=== PATIENT | female | born 1985 | race Two or more races ===

== ENCOUNTER 2017-07-23 20:53 | Emergency (ER) | payer SELFPAY ==
[~2017-07-23] VITALS: Ht 154.9 cm; Wt 81.6 kg
--- NOTE | 2017-07-23 21:05 | Emergency Room Report ---
History of Present Illness General Chief Complaint: To Be Triaged Source: Patient Present Illness HPI Is a 32-year-old female with no past medical history. Presents with chief complaint of epigastric pain and felt nauseous but no vomiting. No radiation. Pain is crampy in nature. Also felt dizzy. No diarrhea. No fever or chills. No urinary complaint. No had this problem before. Allergies: Coded Allergies: No Known Allergies (Unverified , 07/23/17) Patient History Past Medical History: none, see triage record, old chart reviewed Past Surgical History: other Pertinent Family History: none Social History: Denies: smoking Now: No Immunizations: other Reviewed Nursing Documentation: PMH: Agreed, PSxH: Agreed Review of Systems Eye: Denies: eye pain, blurred vision ENT: Denies: ear pain, nose congestion, throat swelling Respiratory: Denies: cough, shortness of breath Cardiovascular: Denies: chest pain, palpitations Gastrointestinal: Reports: abdominal pain, nausea, Denies: diarrhea, vomiting Musculoskeletal: Denies: back pain, joint pain Skin: Denies: rash Neurological: Denies: headache, numbness Endocrine: Denies: increased thirst, increased urine Hematologic/Lymphatic: Denies: easy bruising All Other Systems: negative except mentioned in HPI Physical Exam vitals normal Sp02 EP Interpretation: reviewed, normal General Appearance: well appearing, no apparent distress, alert Head: normocephalic, atraumatic Eyes: bilateral eye PERRL, bilateral eye EOMI ENT: hearing grossly normal, normal pharynx Neck: full range of motion, supple, no meningismus Respiratory: chest non-tender, lungs clear, normal breath sounds Cardiovascular #1: regular rate, rhythm, no murmur Gastrointestinal: normal bowel sounds, non tender, no mass, no organomegaly, no bruit, non-distended Musculoskeletal: back normal, gait/station normal, normal range of motion Psychiatric: mood/affect normal Skin: warm/dry Medical Decision Making Diagnostic Impression: Primary Impression: Abdominal pain Qualified Codes: R10.13 - Epigastric pain ER Course Patient presents with epigastric abdominal pain. Most likely peptic ulcer disease versus gastritis. My bedside ultrasound her gallbladder is normal. No gallstone. Negative Brennan sign. Patient felt better after Mylanta. No evidence of acute abdomen or injection. We'll discharge home. No evidence of . Lab Results Impression labs normal Status: improved Disposition: HOME, SELF-CARE Condition: Stable Scripts Famotidine (PEPCID) 40 Mg Tablet 40 MG PO DAILY, #30 TAB 0 Refills Prov: THOMAS KINGSLEY M.D. 07/23/17 Additional Instructions: Followup with your Dr. in 7 days. Return if symptom worsen. THOMAS KINGSLEY M.D. Jul 23, 2017 21:05
[2017-07-23 21:10] VITALS: BP 106/50
[2017-07-23] MEDS ORDERED: Mylanta II UD 30ml ORAL ONE (21:15)
[2017-07-23 21:36] LABS: EOSINOPHILS % (AUTO) 2.4 % (0.0-3.0); MEAN CORPUSCULAR HEMOGLOBIN 30.1 PG (27.0-31.0); MEAN CORPUSCULAR HGB CONC 33.3 G/DL (32.0-36.0); MEAN CORPUSCULAR VOLUME 90 FL (80-99); MONOCYTES % (AUTO) 8.2 % (1.0-10.0); NEUTROPHILS % (AUTO) 55.5 % (45.0-75.0); PLATELET COUNT 304 K/UL (150-450); RED BLOOD COUNT 4.23 M/UL (4.20-5.40); RED CELL DISTRIBUTION WIDTH 12.2 % (11.6-14.8); WHITE BLOOD COUNT 11.7 K/UL (4.8-10.8)
[2017-07-23 21:39] LABS: APPEARANCE,URINE CLEAR; KETONES,URINE NEGATIVE (NEGATIVE); LEUKOCYTE ESTERASE ,URINE NEGATIVE (NEGATIVE); NITRITE,URINE NEGATIVE (NEGATIVE); PH,URINE 7 (4.5-8.0); PROTEIN,URINE NEGATIVE (NEGATIVE); UROBILINOGEN,URINE NORMAL MG/DL (0.0-1.0)
[2017-07-23 21:52] LABS: RBC,URINE 0-2 /HPF (0 - 2); SQUAMOUS EPITHELIAL CELL,UR MODERATE /LPF (NONE/OCC); WBC,URINE 0-2 /HPF (0 - 2)
[2017-07-23 22:00] LABS: ALBUMIN/GLOBULIN RATIO 0.9 (1.0-2.7); ANION GAP 5 (5-15); ASPARTATE AMINO TRANSFERASE 34 U/L (15-37); CALCIUM 8.9 MG/DL (8.5-10.1); CARBON DIOXIDE 26 MMOL/L (21-32); CHLORIDE 102 MMOL/L (98-107); CREATININE 0.6 MG/DL (0.55-1.30); GLOMERULAR FILTRATION RATE > 60 mL/min (>60); LIPASE 174 U/L (73-393); SODIUM 133 MMOL/L (136-145); TOTAL PROTEIN 7.3 G/DL (6.4-8.2)
[2017-07-23] MEDS ORDERED: PEPCID40 MG PO (22:17)
[2017-07-23 22:26] VITALS: BP 109/59
[2017-07-23 22:33] LABS: ALANINE AMINOTRANSFERASE 20 U/L (12-78)
== END 2017-07-23 22:26 | disposition home or self-care (01) ==
LOC: EMR 21:08
DX: R10.13 Epigastric pain (principal); R11.0 Nausea
CPT/HCPCS: 36415; 80053; 81003; 81025; 83690; 85025; 96374; 96375; 99284; J2405

== ENCOUNTER 2017-12-31 18:57 | Emergency (ER) | payer MEDICAID, SELFPAY ==
[~2017-12-31] VITALS: Ht 160 cm; Wt 89.8 kg
[~2017-12-31 18:57] MED LIST: PEPCID40 MG PO
[2017-12-31] MEDS ORDERED: NKM (19:09)
[2017-12-31 19:45] LABS: APPEARANCE,URINE SLIGHTLY CLOUDY; BILIRUBIN, URINE NEGATIVE (NEGATIVE); COLOR,URINE PALE YELLOW; GLUCOSE, URINE (UA) NEGATIVE (NEGATIVE); KETONES,URINE NEGATIVE (NEGATIVE); LEUKOCYTE ESTERASE ,URINE NEGATIVE (NEGATIVE); NITRITE,URINE NEGATIVE (NEGATIVE); PH,URINE 7 (4.5-8.0); PROTEIN,URINE NEGATIVE (NEGATIVE); UROBILINOGEN,URINE NORMAL MG/DL (0.0-1.0)
[2017-12-31] MEDS ORDERED: METRONIDAZOLE500 MG ORAL (20:22)
[2017-12-31] MEDS ORDERED: BENADRYL25 MG ORAL (20:22)
[2017-12-31] MEDS ORDERED: PREDNISONE20 MG ORAL (20:22)
[2017-12-31 20:25] VITALS: BP 122/63
[2017-12-31 20:30] VITALS: BP 120/63
--- NOTE | 2017-12-31 20:44 | Emergency Room Report ---
History of Present Illness General Chief Complaint: Skin Rash/Abscess Source: Patient Present Illness [facility] The patient is a 32-year-old female presenting for 3 days of rash. She states that she ate pork and then noticed eruptions on her arms, abdomen, and back. This is described as itchy. She denies any pain. She denies previous allergies to food. She denies using any new products. She has not tried any medications for this. She is also complaining of vaginal discharge and foul odor. She denies dysuria or abdominal pain. She denies other symptoms including nausea, vomiting, fever , chills, back pain, shortness of breath Allergies: Coded Allergies: No Known Allergies (Unverified , 07/23/17) Patient History Past Medical History: see triage record Pertinent Family History: none Last Menstrual Period: 10/19/17 Reviewed Nursing Documentation: PMH: Agreed; PSxH: Agreed Nursing Documentation-PM Past Medical History: No Stated History Review of Systems All Other Systems: negative except mentioned in HPI Physical Exam Vital Signs Date Time Temp Pulse Resp B/P (MAP) Pulse Ox O2 Delivery O2 Flow Rate FiO2 12/31/17 19:03 97.8 65 18 120/63 98 Room Air 97.9 Sp02 EP Interpretation: reviewed, normal General Appearance: no apparent distress, alert, GCS 15, non-toxic Head: normocephalic, atraumatic Eyes: bilateral eye normal inspection, bilateral eye PERRL ENT: hearing grossly normal, normal pharynx, no angioedema, normal voice Neck: full range of motion, supple/symm/no masses Respiratory: chest non-tender, lungs clear, normal breath sounds, speaking full sentences Cardiovascular #1: regular rate, rhythm, no edema Gastrointestinal: normal bowel sounds, non tender, soft, non-distended, no guarding, no rebound Musculoskeletal: back normal, gait/station normal, normal range of motion, non- tender Neurologic: alert, oriented x3, responsive, motor strength/tone normal, sensory intact, speech normal Psychiatric: judgement/insight normal, memory normal, mood/affect normal, no suicidal/homicidal ideation Skin: normal color, well hydrated, rash - multiple urticaria to bilat arms, chest, abdomen, and back Medical Decision Making PA Attestation Dr. Sanchez is my supervising physician. Patient management was discussed with my supervising physician Diagnostic Impression: Primary Impression: Allergic reaction Qualified Codes: T78.40XA - Allergy, unspecified, initial encounter Additional Impression: BV (bacterial vaginosis) ER Course The patient is a 32-year-old female presenting for complaints of rash as well as vaginal discharge Differential diagnosis considered but not limited to: UTI, vaginitis, pyelonephritis, pyelonephrosis, PID, ectopic Ddx considered include but not limited to allergic reaction, insect bite, contact dermatitis, eczema, cellulitis PE: Vitals WNL. NAD. Abdomen: Normal appearance. Non distended. No ecchymosis. Normal BS. Non TTP. No McBurney point tenderness. No guarding. No CVA tenderness Skin: warm and dry. + urticaria UA shows squamous cells. Neg preg Pt will be CO'ed home with prescription for flagyl, Benadryl, and prednisone and will FU with PMD. ER precautions given Laboratory Tests Test 12/31/17 19:00 Urine Color Pale yellow Urine Appearance Slightly cloudy Urine pH 7 (4.5-8.0) Urine Specific [place] 1.010 (1.005-1.035) Urine Protein Negative (NEGATIVE) Urine Glucose (UA) Negative (NEGATIVE) Urine Ketones Negative (NEGATIVE) Urine Occult Blood 1+ (NEGATIVE) H Urine Nitrite Negative (NEGATIVE) Urine Bilirubin Negative (NEGATIVE) Urine Urobilinogen Normal MG/DL (0.0-1.0) Urine Leukocyte Esterase Negative (NEGATIVE) Urine RBC 2-4 /HPF (0 - 2) H Urine WBC 0-2 /HPF (0 - 2) Urine Squamous Epithelial Cells Moderate /LPF (NONE/OCC) H Urine Amorphous Sediment Many /LPF (NONE) H Urine Bacteria Few /HPF (NONE) Urine HCG, Qualitative Negative (NEGATIVE) Lab Results Impression UA shows squamous cells. Neg preg Last Vital Signs Date Time Temp Pulse Resp B/P (MAP) Pulse Ox O2 Delivery O2 Flow Rate FiO2 12/31/17 20:30 97.8 18 120/63 98 Room Air 97.9 12/31/17 20:25 67 Status: improved Disposition: HOME, SELF-CARE Condition: Improved Scripts Metronidazole* (FLAGYL*) 500 Mg Tablet 500 MG ORAL BID, #14 TAB 0 Refills Prov: TERZIANTRACY P.A. 12/31/17 Diphenhydramine Hcl* (BENADRYL*) 25 Mg Capsule 25 MG ORAL Q6H PRN for Itching, #30 CAP Prov: TRACY MCCULLOUGH 12/31/17 Prednisone* (PREDNISONE*) 20 Mg Tablet 40 MG ORAL DAILY, #8 TAB Prov: TRACY MCCULLOUGH 12/31/17 Patient Instructions: Rash Additional Instructions: I discussed my findings with the patient. All questions and concerns have been answered. Treatment and medication compliance have been addressed. I advised the patient that they need to follow up with PMD in 3-5 days. Return to ED if symptoms worsen, new symptoms arise, or if needed for any reason. Patient verbalized understanding of discharge instructions. TRACY MCCULLOUGH Dec 31, 2017 20:44
== END 2017-12-31 20:35 | disposition home or self-care (01) ==
LOC: EMR 19:42
DX: T78.40XA Allergy, unspecified, initial encounter (principal); N76.0 Acute vaginitis; X58.XXXA Exposure to other specified factors, initial encounter
CPT/HCPCS: 81003; 81025; 99284; J7512

== ENCOUNTER 2018-07-11 23:18 | Emergency (ER) | payer MEDICAID ==
[~2018-07-11] VITALS: Ht 154.9 cm; Wt 88.5 kg
[~2018-07-11 23:18] MED LIST changes: +BENADRYL25 MG ORAL; +METRONIDAZOLE500 MG ORAL; +NKM; +PREDNISONE20 MG ORAL
[2018-07-11 23:39] VITALS: BP 108/69
--- NOTE | 2018-07-11 23:49 | Emergency Room Report ---
History of Present Illness General Chief Complaint: Pain Source: Patient Present Illness HPI Patient is a 33-year-old female who presented after the foreign body in the hand. The patient had injury 1 day prior to arrival. She reports having moderate pain. The patient had the reported attempting to remove it with a needle. She denied any fever. She reports having pencil lead in her palmar hand. Allergies: Coded Allergies: No Known Allergies (Unverified , 07/23/17) Patient History Now: Yes - 20 weeks : 3 Para: 3 Reviewed Nursing Documentation: PMH: Agreed; PSxH: Agreed Nursing Documentation-PMH Past Medical History: No Stated History Review of Systems All Other Systems: negative except mentioned in HPI Physical Exam Vital Signs Date Time Temp Pulse Resp B/P (MAP) Pulse Ox O2 Delivery O2 Flow Rate FiO2 07/11/18 23:23 98.5 83 15 108/69 95 Room Air 98.4 General Appearance: well appearing, no apparent distress, alert, GCS 15 Head: normocephalic, atraumatic ENT: hearing grossly normal, normal voice Neck: full range of motion, supple Respiratory: no respiratory distress, speaking full sentences Musculoskeletal: other - right hand small puncture, no erythema Neurologic: normal gait Psychiatric: mood/affect normal Skin: no rash Medical Decision Making Diagnostic Impression: Primary Impression: Foreign body (FB) in soft tissue ER Course Patient presented for foreign body. Differential diagnosis included but was not limited to foreign body, cellulitis, vascular injury among others. Patient has a benign exam and does not appear to require any further imaging or laboratory testing at this time. Patient was noted to be without any concerning symptoms related to . Patient was offered removal which she declined. The patient was advised to have wound recheck with her primary care physician in the next few days. She is given prescription for topical antibiotics. Last Vital Signs Date Time Temp Pulse Resp B/P (MAP) Pulse Ox O2 Delivery O2 Flow Rate FiO2 07/11/18 23:39 98.4 83 15 108/69 95 Room Air 98.4 Status: improved Disposition: HOME, SELF-CARE Condition: Stable Scripts Bacitracin Zinc* (BACITRACIN ZINC*) 1 Each Packet 1 APPLIC TOPIC THREE TIMES A DAY, #20 PACKET Prov: Artie Villanueva MD 07/12/18 Referrals: NOT CHOSEN [facility]/,REFERRING (PCP) Artie Villanueva MD Jul 11, 2018 23:49
[2018-07-12] MEDS ORDERED: Bacitracin Oint UD TOPIC ONE ×2
[2018-07-12] MEDS ORDERED: BACITRACIN ZIN1 EACH TOPIC (00:01)
[2018-07-12 00:28] VITALS: BP 108/69
== END 2018-07-12 00:28 | disposition home or self-care (01) ==
LOC: EMR 23:44
DX: M79.5 Residual foreign body in soft tissue (principal); R52 Pain, unspecified; Z33.1 Pregnant state, incidental
CPT/HCPCS: 99282

== ENCOUNTER 2019-10-03 15:02 | Emergency (ER) | payer MEDICAID ==
[~2019-10-03] VITALS: Ht 152.4 cm; Wt 56.7 kg
[~2019-10-03 15:02] MED LIST changes: +BACITRACIN ZIN1 EACH TOPIC
[2019-10-03 15:11] VITALS: BP 120/70
--- NOTE | 2019-10-03 15:21 | NUR ---
ED Nurse Note: PT FROM HOME CAME IN DUE TO COUGHING AND ITCHINESS ON HER LIPS X 4 DAYS. AAO X,4 AMBULATORY. NO SWELLING OF LIPS AT THIS TIME. NO RESPIRATORY DISTRESS AND SPEAKS IN FULL SENTENCES.
--- NOTE | 2019-10-03 15:32 | Emergency Room Report ---
History of Present Illness General Chief Complaint: General Complaint Source: Patient Present Illness HPI 34-year-old female presents to emergency room with acute onset of itching and swelling to bilateral lips started 4 to 5 days ago after using a lipstick. She has not taken any medications for the symptoms. She tried to put on another Vaseline-like lipstick which caused worsening burning. Symptoms at this time are moderate in intensity. 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 Allergies: Coded Allergies: No Known Allergies (Unverified , 07/23/17) Patient History Last Menstrual Period: 06/2019 Now: No - Nursing Documentation-[facility] Past Medical History: No Stated History Review of Systems Constitutional: Denies: chills, fever Respiratory: Denies: cough, shortness of breath Cardiovascular: Denies: chest pain, palpitations Gastrointestinal: Denies: diarrhea, vomiting Genitourinary: Denies: hematuria, pain Musculoskeletal: Denies: joint swelling Skin: Reports: rash; Denies: lesions Neurological: Denies: headache, dizziness Physical Exam Vital Signs Date Time Temp Pulse Resp B/P (MAP) Pulse Ox O2 Delivery O2 Flow Rate FiO2 10/03/19 15:11 99.1 86 18 120/70 (87) 97 Room Air Sp02 EP Interpretation: reviewed General Appearance: well appearing, no apparent distress, non-toxic Head: normocephalic, atraumatic Eyes: bilateral eye normal inspection ENT: hearing grossly normal, EOM grossly intact, moist mucus membranes, other - Mild erythema to upper and lower lip with cracking, surrounding skin dry, and mild macular patches, no open wounds or discharge Neck: supple Respiratory: lungs clear, normal breath sounds, no rhonchi, no respiratory distress, no retraction, no accessory muscle use, no wheezing, speaking full sentences Cardiovascular #1: regular rate, rhythm, normal capillary refill Cardiovascular #2: 2+ radial (R), 2+ radial (L) Gastrointestinal: soft, non-distended Rectal: deferred Musculoskeletal: moves extm spontaneously, no lower extremity edema Neurologic: grossly normal Psychiatric: mood/affect normal Skin: warm/dry, normal turgor Medical Decision Making Diagnostic Impression: Primary Impression: Dermatitis Additional Impression: Allergic reaction to chemical substance ER Course Patient found to have dermatitis-like lesions on upper and lower lip after using a lipstick. Patient advised to stop using any other products and to use petroleum jelly while it heals. Patient advised to use Benadryl for itching- like symptoms. Patient is stable for outpatient follow-up and discharge with her primary care doctor as she has no signs of stridor, airway compromise, respiratory distress. Last Vital Signs Date Time Temp Pulse Resp B/P (MAP) Pulse Ox O2 Delivery O2 Flow Rate FiO2 10/03/19 15:21 79 19 Room Air 10/03/19 15:11 99.1 120/70 97 Disposition: HOME, SELF-CARE Condition: Stable Referrals: NOT CHOSEN IPA/MD,REFERRING (PCP) Patient Instructions: Contact Dermatitis Additional Instructions: Please follow-up with your primary care doctor in 2 to 3 days for reevaluation and resolution of symptoms Marco Ramos M.D. Oct 03, 2019 15:32
[2019-10-03 15:57] VITALS: BP 126/77
--- NOTE | 2019-10-03 15:58 | NUR ---
ED Nurse Note: Pt cleared by health care Provider for discharge. DC instructions was given in Slovak and explained to pt and verbalized understanding of teachings. All medical deviecs such as ID band removed. Pt is AAO x4, ambulatory and left with all personal belongings.
== END 2019-10-03 15:58 | disposition home or self-care (01) ==
LOC: EMR 15:24
DX: L30.9 Dermatitis, unspecified (principal); T50.995A Adverse effect of other drugs, medicaments and biological substances, initial encounter; Y92.9 Unspecified place or not applicable
CPT/HCPCS: 99281